=== PATIENT | female | born 1990 | race Caucasian/White ===

== ENCOUNTER 2016-12-01 05:46 | Emergency (ER) | payer OTHER ==
[2016-12-01] MEDS ORDERED: Morphine INJ* 4 MG/ML 1 ML SYRINGE IV ONE (06:16)
[2016-12-01] MEDS ORDERED: NS 0.9% 1000 ML* 1,000 ML IV ONE (06:16)
[2016-12-01] MEDS ORDERED: Ondansetron INJ* 2 MG/ML VIAL IV ONE ×2 (06:16→08:15)
[2016-12-01 06:43] LABS: Urine Bacteria 1+ (Absent); Urine Bilirubin Negative (Negative); Urine Glucose Negative (Negative); Urine Nitrite Negative (Negative)
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
[2016-12-01 07:11] LABS: Hematocrit 40 % (35-47); Hemoglobin 13.6 g/dl (12.0-16.0); Mean Corpuscular HGB Conc 34 g/dl (31-36); Mean Corpuscular Hemoglobin 30 pg (27-31); Mean Corpuscular Volume 90 fL (80-97); Mean Platelet Volume 8 um3 (7.4-10.4); Red Blood Count 4.48 10^6/ul (4.0-5.4); Red Cell Distribution Width 13 % (10.5-15); White Blood Count 7.6 10^3/ul (3.5-10.8)
[2016-12-01 07:29] LABS: ALT 13 U/L (7-52); AST 13 U/L (13-39); Albumin 4.1 g/dL (3.2-5.2); Alkaline Phosphatase 56 U/L (34-104); Anion Gap 9 mmol/L (2-11); BUN/Creatinine Ratio 8.2 (8-20); Blood Urea Nitrogen 8 mg/dL (6-24); CO2 Carbon Dioxide 22 mmol/L (22-32); Calcium 9.2 mg/dL (8.6-10.3); Chloride 105 mmol/L (101-111); EGFR African American 87.6 (>60); EGFR Non-African American 68.1 (>60); Glucose 101 mg/dL (70-100); Lipase 13 U/L (11.0-82.0); Magnesium 1.9 mg/dL (1.9-2.7); Sodium 136 mmol/L (133-145); Total Protein 7.1 g/dL (6.4-8.9)
[2016-12-01] MEDS ORDERED: Ketorolac INJ* 30 MG/ML 1 ML VIAL IV PUSH ONE (08:15)
--- NOTE | 2016-12-01 08:37 | RAD ---
Indication: Left flank pain. CT of the abdomen and pelvis was performed without oral or IV contrast administration. Coronal and sagittal reconstructed images were obtained. There is mild to moderate left hydroureter and hydronephrosis. There is a 4 mm calculus in the distal ureter just above the ureterovesicular junction. There may be an additional 1 mm calculus proximally. Other nonobstructing calculi which measure up to 1 to 2 mm are noted in the left kidney. The right kidney demonstrates no hydronephrosis although scattered nonobstructing calculi are present. The lung bases demonstrate no pleural fluid, nodules or masses. Heart is of normal size without evidence of pericardial effusion. Liver is normal in size. No focal lesions or intrahepatic ductal dilatation is noted. The pancreas demonstrates no mass or pancreatic ductal location. The spleen is normal in size. No adrenal lesions are noted. No dilated loops of bowel are noted. The colon is filled with stool. The appendix is visualized and is normal. No dilated loops of bowel are noted. No retroperitoneal or pelvic lymphadenopathy is noted. The uterus and ovaries are unremarkable. No hernias are noted. IMPRESSION: THERE IS A CALCULUS MEASURING 4 MM IN THE DISTAL LEFT URETER WITH MILD LEFT HYDRONEPHROSIS AND HYDROURETER. ADDITIONAL 1 TO 2 MM CALCULI MAY BE PRESENT. OTHER TINY NONOBSTRUCTING CALCULI ARE NOTED IN BOTH KIDNEYS.
[2016-12-01] MEDS ORDERED: Levofloxacin 750 MG IVPREMIX(* 750 MG/150 ML BAG IVPB ONE (08:54)
[2016-12-01] MEDS ORDERED: Potassium Phosphate IV* 20 MMOLE in NS 0.9% 250 ML* 250 ML IVPB ONE (08:55)
[2016-12-01 12:10] VITALS: BP 114/67
== END 2016-12-01 12:08 | disposition short-term general hospital (02) ==
LOC: ED 05:46
DX: N13.2 Hydronephrosis with renal and ureteral calculous obstruction (principal); R10.84 Generalized abdominal pain; R50.9 Fever, unspecified; R07.9 Chest pain, unspecified; R11.2 Nausea with vomiting, unspecified; R21 Rash and other nonspecific skin eruption
CPT/HCPCS: 36415; 74176; 80053; 81003; 81015; 83690; 83735; 84702; 85025; 86140; 86703; 87040; 87086; 96374; 96375; 99284; J1885; J2270; J2405

== ENCOUNTER 2017-02-19 19:42 | Emergency (ER) | payer OTHER ==
[2017-02-19] MEDS ORDERED: Ondansetron INJ* 2 MG/ML VIAL IV ONE (21:48)
[2017-02-19] MEDS ORDERED: NS 0.9% 1000 ML* 1,000 ML IV ONE (21:48)
[2017-02-19] MEDS ORDERED: Ketorolac INJ* 30 MG/ML 1 ML VIAL IV ONE (21:48)
[2017-02-19] MEDS ORDERED: diPHENhydraMINE IV* 50 MG/ML 1 ml VIAL (BENADRYL) IV ONE (21:49)
[2017-02-19 22:59] LABS: Hematocrit 42 % (35-47); Hemoglobin 13.9 g/dl (12.0-16.0); Mean Corpuscular HGB Conc 33 g/dl (31-36); Mean Corpuscular Hemoglobin 31 pg (27-31); Mean Corpuscular Volume 92 fL (80-97); Mean Platelet Volume 7 um3 (7.4-10.4); Red Blood Count 4.56 10^6/ul (4.0-5.4); Red Cell Distribution Width 13 % (10.5-15); White Blood Count 7.7 10^3/ul (3.5-10.8)
[2017-02-19 23:14] LABS: ALT 10 U/L (7-52); AST 13 U/L (13-39); Albumin 4.3 g/dL (3.2-5.2); Alkaline Phosphatase 52 U/L (34-104); Anion Gap 7 mmol/L (2-11); BUN/Creatinine Ratio 11.1 (8-20); Blood Urea Nitrogen 8 mg/dL (6-24); C Reactive Protein < 1.00 mg/L (< 5.00); CO2 Carbon Dioxide 19 mmol/L (22-32); Calcium 8.7 mg/dL (8.6-10.3); Chloride 109 mmol/L (101-111); EGFR Non-African American 97.2 (>60); Globulin 2.8 g/dL (2-4); Glucose 102 mg/dL (70-100); Potassium 3.7 mmol/L (3.5-5.0); Sodium 135 mmol/L (133-145); Total Protein 7.1 g/dL (6.4-8.9)
[2017-02-20] MEDS ORDERED: DOXYcycline CAP(*) 100 MG PO ONE (00:06)
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
[2017-02-20 01:11] VITALS: BP 113/71
== END 2017-02-20 00:35 | disposition home or self-care (01) ==
LOC: ED 19:42
DX: J32.8 Other chronic sinusitis (principal); R51 Headache; R11.10 Vomiting, unspecified; R50.9 Fever, unspecified
CPT/HCPCS: 36415; 80053; 85025; 86140; 96374; 96375; 99283; A9270-GY; J1200; J1885; J2405

== ENCOUNTER 2017-04-07 19:25 | Emergency (ER) | payer MEDICAID, OTHER ==
[2017-04-07 19:42] VITALS: BP 139/98
--- NOTE | 2017-04-07 20:11 | UC ---
Respiratory Complaint HPI - History of Current Complaint Chief Complaint: UCRespiratory Stated Complaint: SINUS COMPLAINT Time Seen by Provider: 04/07/17 20:05 Hx Obtained From: Patient Hx Last Menstrual Period: one wk ago ?: No Onset/Duration: Gradual Onset - over past 2 days has had sinus pressure, pain in her face if bends forward, sensitive to light and blowing nose Timing: Constant Severity Initially: Mild Severity Currently: Severe Aggravating Factors: Nothing - bending Associated Signs And Symptoms: Positive: Dizziness - if moves head too fast, Nasal Congestion, Sinus Discomfort - Allergies/Home Medications Allergies/Adverse Reactions: Allergies Allergy/AdvReac Type Severity Reaction Status Date / Time Amoxicillin Allergy Intermediate Hives Verified 04/07/17 19:42 Albuterol AdvReac Severe Vomiting Verified 04/07/17 19:42 Wheat Extract AdvReac Severe Vomiting Verified 04/07/17 19:42 ANTIBACTERIAL SOAPS Allergy Severe Hives Uncoded 04/07/17 19:42 CATS Allergy Severe Congestion Uncoded 04/07/17 19:42 MRI/CT "BLUE DYE" Allergy Severe ELEVATED Uncoded 04/07/17 19:42 HR AND BP, SWEATY, BREATHING PROBLEMS PMH/Surg Hx/FS Hx/Imm Hx Previously Healthy: Yes Neurological History: Migraine Psychological History: Anxiety - Surgical History Surgical History: Yes Surgery Procedure, Year, and Place: WISDOM TEETH, BREAST IMPLANTS - Family History Known Family History: Positive: None, Diabetes Negative: Cardiac Disease, Hypertension - Social History Occupation: Unemployed Lives: With Family Alcohol Use: None Substance Use Type: None Smoking Status (MU): Never Smoked Tobacco Have You Smoked in the Last Year: No Household Exposure Type: Cigarettes Review of Systems Constitutional: Negative Skin: Negative Eyes: Photophobia ENT: Sinus Congestion, Sinus Pain/Tenderness Respiratory: Negative Cardiovascular: Negative Neurovascular: Negative Musculoskeletal: Negative Neurological: Headache - points to forehead as painful area Psychological: Anxious - crying "I'm sick of having sinus infections" All Other Systems Reviewed And Are Negative: Yes Physical Exam Triage Information Reviewed: Yes Appearance: Well-Appearing, Well-Nourished Vital Signs: Initial Vital Signs Temp 97.6 F 04/07/17 19:40 Pulse 101 04/07/17 19:40 Resp 18 04/07/17 19:40 BP 139/98 04/07/17 19:40 Pulse Ox 100 04/07/17 19:40 Vital Signs Reviewed: Yes Eyes: Positive: Conjunctiva Clear. Negative: Conjunctiva Inflamed ENT: Positive: Pharynx normal, Nasal congestion, TMs normal, Other: - bilateral maxillary sinus pain Neck exam: Normal Neck: Positive: Supple, Nontender, No Lymphadenopathy Respiratory Exam: Normal Cardiovascular Exam: Normal Neurological Exam: Normal Neurological: Positive: Alert Psychological: Positive: Other: - crying Skin Exam: Normal Skin: Negative: rashes UC Diagnostic Evaluation - Laboratory O2 Sat by Pulse Oximetry: 100 Respiratory Course/Dx - Differential Dx/Diagnosis Differential Diagnosis/HQI/PQRI: Sinusitis, Other - migraine, URI Provider Diagnoses: sinusitis Discharge - Discharge Plan Condition: Stable Disposition: HOME Prescriptions: Sulfamethox/Trimethoprim DS* [Bactrim DS 800/160 TAB*] 1 tab PO BID #20 tab
[2017-04-07] MEDS: Sulfamethox/Trimethoprim DS 800/160* TAB PO ONE (20:27)
== END 2017-04-07 20:30 | disposition home or self-care (01) ==
LOC: UCEAST 19:25
DX: J32.9 Chronic sinusitis, unspecified (principal)
CPT/HCPCS: 99212; A9270-GY; G0463

== ENCOUNTER 2017-04-10 11:51 | Emergency (ER) | payer MEDICAID, OTHER ==
[2017-04-10] MEDS ORDERED: Magnesium Sulfate 2 GM IV* 2 GM/50 ML BAG IVPB ONE (16:14)
[2017-04-10] MEDS ORDERED: Metoclopramide IV* 5 MG/ML 2 ML VIAL IV SLOW PU ONE (16:14)
[2017-04-10 16:17] LABS: Hematocrit 40 % (35-47); Hemoglobin 13.7 g/dl (12.0-16.0); Mean Corpuscular HGB Conc 34 g/dl (31-36); Mean Corpuscular Hemoglobin 31 pg (27-31); Mean Corpuscular Volume 91 fL (80-97); Mean Platelet Volume 7 um3 (7.4-10.4); Red Blood Count 4.46 10^6/ul (4.0-5.4); Red Cell Distribution Width 13 % (10.5-15); White Blood Count 6.6 10^3/ul (3.5-10.8)
--- NOTE | 2017-04-10 16:28 | RAD ---
Indication: Headaches, photophobia, meningismus. CT of the brain was performed without IV contrast. Ventricular structures are midline. No midline shift is noted. The extra-axial spaces are unremarkable. There is no evidence of intracranial mass or hemorrhage. No other high or low density lesions are identified. Mastoid air cells and paranasal sinuses are unremarkable. IMPRESSION: There is no evidence of intracranial mass or hemorrhage noted.
[2017-04-10 16:29] LABS: Albumin 4.4 g/dL (3.2-5.2); Calcium 9.3 mg/dL (8.6-10.3); EGFR African American 100.4 (>60); EGFR Non-African American 78.1 (>60); Potassium 3.8 mmol/L (3.5-5.0); Total Bilirubin 0.6 mg/dL (0.2-1.0); Total Protein 7.4 g/dL (6.4-8.9)
[2017-04-10] MEDS ORDERED: Ketorolac INJ* 30 MG/ML 1 ML VIAL IV PUSH ONE (16:45)
[2017-04-10] MEDS ORDERED: PROCHLORPERAZINE INJ 5 MG/ML 2 ML VIAL IV ONE (19:50)
[2017-04-10] MEDS ORDERED: diPHENhydraMINE IV* 50 MG/ML 1 ml VIAL (BENADRYL) SLOW PUSH ONE (19:51)
[2017-04-10 21:02] LABS: CSF Glucose 54 mg/dL (40-70)
[2017-04-10 21:22] VITALS: BP 109/75
[2017-04-10 21:24] LABS: Body Fluid Appearance Clear
[2017-04-10 21:25] LABS: BF RBC Count #1 0; BF RBC Count #2 0; BF WBC Count #1 2; BF WBC Count #2 1; Body Fluid WBC 2 /mcL; RBC counts within 6%? Yes; WBC counts within 15%? Yes
[2017-04-10 21:38] LABS: Body Fluid Total Cells Counted 8
[2017-04-10] MEDS ORDERED: Metoclopramide TAB* 10 MG PO ONE (22:03)
[2017-04-10] MEDS ORDERED: Naproxen TAB* 250 MG PO ONE (22:03)
[2017-04-10] MEDS ORDERED: Levofloxacin TAB* 500 MG PO ONE (22:03)
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
== END 2017-04-10 22:05 | disposition home or self-care (01) ==
LOC: ED 11:51
DX: J32.9 Chronic sinusitis, unspecified (principal)
CPT/HCPCS: 36415; 70450; 80053; 82945; 83605; 84157; 85025; 85610; 85730; 87040; 87070; 87205; 89051; 93005; 96374; 96375; 99283; A9270-GY; J0780; J1200; J1885; J2765; J3475

== ENCOUNTER 2017-09-28 18:22 | Emergency (ER) | payer OTHER ==
[2017-09-28 19:15] VITALS: BP 125/79
--- NOTE | 2017-09-28 19:30 | UC ---
Complaint Female HPI - HPI Summary HPI Summary: 27 yo WF presents with burning with urination and urinary pressure for the past 4 days. She tells me that she has had a UTI in the past and this feels the same. She has also had a kidney stone in the past, but says this does not feel like that. She does have some mild right flank pain, but feels most of the discomfort around her bladder. Denies fever, chills, abdominal pain, n/v/d/c, vaginal pain/discharge/odor. - History Of Current Complaint Chief Complaint: UCGU Stated Complaint: UTI Time Seen by Provider: 09/28/17 19:29 Hx Obtained From: Patient Hx Last Menstrual Period: 09/07/17 Onset/Duration: Gradual Onset Timing: Constant Severity Initially: Moderate Severity Currently: Moderate Pain Intensity: 6 Pain Scale Used: 0-10 Numeric Character: Burning - Allergies/Home Medications Allergies/Adverse Reactions: Allergies Allergy/AdvReac Type Severity Reaction Status Date / Time albuterol Allergy Vomiting Verified 09/28/17 19:17 amoxicillin Allergy Hives Verified 09/28/17 19:17 ANTIBACTERIAL SOAPS Allergy Severe Hives Uncoded 09/28/17 19:17 CATS Allergy Severe Congestion Uncoded 09/28/17 19:17 MRI/CT "BLUE DYE" Allergy Severe ELEVATED Uncoded 09/28/17 19:17 HR AND BP, SWEATY, BREATHING PROBLEMS wheat extract Allergy Vomiting Uncoded 09/28/17 19:17 Home Medications: Home Medications Ibuprofen 400 mg PO Q6H PRN 09/28/17 [History Confirmed 09/28/17] SUMAtriptan TAB* [Imitrex TAB*] 100 mg PO SEE INSTRUCTIONS PRN 09/28/17 [ History Confirmed 09/28/17] Topiramate 50 mg PO DAILY 09/28/17 [History Confirmed 09/28/17] PMH/Surg Hx/FS Hx/Imm Hx Previously Healthy: Yes Neurological History: Migraine Psychological History: Anxiety - Surgical History Surgical History: Yes Surgery Procedure, Year, and Place: WISDOM TEETH, BREAST IMPLANTS - Family History Known Family History: Positive: None, Diabetes Negative: Cardiac Disease, Hypertension - Social History Occupation: Employed Full-time Lives: With Family Alcohol Use: None Substance Use Type: None Smoking Status (MU): Never Smoked Tobacco Have You Smoked in the Last Year: No Household Exposure Type: Cigarettes Review of Systems Constitutional: Negative Skin: Negative Respiratory: Negative Cardiovascular: Negative Gastrointestinal: Negative Genitourinary: Dysuria, Urgency Neurovascular: Negative Musculoskeletal: Negative Neurological: Negative Psychological: Negative All Other Systems Reviewed And Are Negative: Yes Physical Exam Triage Information Reviewed: Yes Appearance: Well-Appearing, No Pain Distress, Well-Nourished Vital Signs: Initial Vital Signs Temp 98.7 F 09/28/17 19:10 Pulse 90 09/28/17 19:10 Resp 16 09/28/17 19:10 BP 125/79 09/28/17 19:10 Pulse Ox 100 09/28/17 19:10 Vital Signs Reviewed: Yes Neck: Positive: Supple, Nontender Respiratory: Positive: Lungs clear, Normal breath sounds, No respiratory distress Cardiovascular: Positive: RRR, No Murmur, Pulses Normal Abdomen Description: Positive: Nontender, No Organomegaly, Soft. Negative: CVA Tenderness (R), CVA Tenderness (L), Distended, Guarding Bowel Sounds: Positive: Present Neurological: Positive: Alert Psychological: Positive: Age Appropriate Behavior Skin: Negative: rashes Complaint Female Dx - Course Course Of Treatment: UA with 2+ protein, 3+ blood, 1+ bili, and trace leuks. Will treat her for UTI and send urine for culture. Advised to set f/u with her PCP in 1-2 weeks or if symptoms worsen. - Differential Dx/Diagnosis Provider Diagnoses: UTI Discharge - Discharge Plan Condition: Stable Disposition: HOME Prescriptions: Sulfamethox/Trimethoprim DS* [Bactrim DS 800/160 TAB*] 1 tab PO BID #10 tab Patient Education Materials: Urinary Tract Infection in Women (DC) Referrals: Sultana Dumont MD [Primary Care Provider] - Additional Instructions: If you develop a fever, shortness of breath, chest pain, new or worsening symptoms - please call your PCP or go to the ED.
== END 2017-09-28 19:45 | disposition home or self-care (01) ==
LOC: UCEAST 18:22
DX: N39.0 Urinary tract infection, site not specified (principal); G43.909 Migraine, unspecified, not intractable, without status migrainosus; F41.9 Anxiety disorder, unspecified; Z87.440 Personal history of urinary (tract) infections; Z87.442 Personal history of urinary calculi; Z88.1 Allergy status to other antibiotic agents; Z91.041 Radiographic dye allergy status
CPT/HCPCS: 81003; 87086; 99212; G0463

== ENCOUNTER 2017-09-30 13:25 | Emergency (ER) | payer OTHER ==
[2017-09-30 14:38] LABS: ABS Basophils 0 10^3/ul (0-0.2); ABS Eosinophils 0 10^3/ul (0-0.6); ABS Lymphocytes 1.3 10^3/ul (1.0-4.8); ABS Monocytes 0.5 10^3/ul (0-0.8); ABS Neutrophils 3.8 10^3/ul (1.5-7.7); ABS Nucleated RBC 0 10^3/ul; Eosinophil % 0.4 % (0-6); Hematocrit 38 % (35-47); Hemoglobin 13.1 g/dl (12.0-16.0); Lymphocyte % 23.3 % (25-47); Mean Corpuscular HGB Conc 34 g/dl (31-36); Mean Corpuscular Hemoglobin 31 pg (27-31); Mean Corpuscular Volume 90 fL (80-97); Mean Platelet Volume 7 um3 (7.4-10.4); Nucleated Red Blood Cells % 0; Platelet Count 319 10^3/ul (150-450); Red Blood Count 4.25 10^6/ul (4.0-5.4); Red Cell Distribution Width 13 % (10.5-15); White Blood Count 5.8 10^3/ul (3.5-10.8)
[2017-09-30 14:53] LABS: EGFR Non-African American 63.1 (>60)
[2017-09-30 15:02] LABS: Urine Appearance Cloudy; Urine Blood 3+ (Negative); Urine Color Amber; Urine Ketones 2+ (Negative); Urine Protein 3+(>=500 mg/dL) (Negative); Urine Specific Gravity 1.022 (1.010-1.030); Urine Urobilinogen Negative (Negative)
--- NOTE | 2017-09-30 17:45 | RAD ---
Indication: Left flank pain. CT of the abdomen and pelvis was performed without oral or IV contrast administration. Coronal and sagittal reconstructed images were obtained. Lung bases demonstrate no pleural fluid, nodules or masses. Heart is of normal size without evidence of pericardial effusion. Liver is normal in size. No focal lesions or intrahepatic ductal dilatation. Spleen is normal in size. Pancreas demonstrates no mass or pancreatic ductal dictation. The gallbladder demonstrates no evidence of cholelithiasis or biliary duct dictation. The common duct is not dilated. No adrenal lesions are noted. The kidneys demonstrates calcifications in both kidneys which are nonobstructive. There is mild left hydroureter and hydronephrosis noted. There is a calculi at the left ureterovesicular junction measuring 4 mm. Urinary bladder is otherwise unremarkable. Uterus and ovaries are otherwise unremarkable. No hernias are identified. Aorta and inferior vena cava are otherwise unremarkable. Small bowel demonstrates no evidence of abnormal dilatation. The colon is filled with stool. The bony structures are grossly unremarkable. IMPRESSION: Calculi at the left ureterovesicular junction measuring 4 mm. Mild left hydronephrosis and hydroureter is noted..
[2017-09-30] MEDS ORDERED: HYDROcodone/ACETAMIN 5-325 MG* 1 TAB PO ONE (18:01)
[2017-09-30 19:29] VITALS: BP 118/99
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
== END 2017-09-30 19:25 | disposition home or self-care (01) ==
LOC: ED 13:25
DX: N13.2 Hydronephrosis with renal and ureteral calculous obstruction (principal); Z88.3 Allergy status to other anti-infective agents; Z88.2 Allergy status to sulfonamides; Z88.8 Allergy status to other drugs, medicaments and biological substances
CPT/HCPCS: 36415; 74176; 80053; 81003; 81015; 83605; 83690; 84702; 85025; 86140; 87086; 99284

== ENCOUNTER 2017-12-28 16:07 | Emergency (ER) | payer OTHER ==
[2017-12-28] MEDS ORDERED: Ondansetron ODT TAB* 4 MG SL ONE (17:54)
--- NOTE | 2017-12-28 18:11 | UC ---
Nausea/Vomiting/Diarrhea HPI - HPI Summary HPI Summary: Patient is 27-year-old female presenting to the with chief complaint of feeling tired and weak, nausea and vomiting with achiness all over times one week. She was recently placed on potassium citrate for kidney stones [address] Rascon. She started having symptoms 2 weeks after being placed on medication and continues to worsen. Labs obtained 1 week ago which shows a normal potassium lab. Unknown chance of or UTI. Denies any urinary symptoms. Denies any abdominal pain. Endorses a small amount of back pain, but this is low back pain and bilateral and she states this is usually at her baseline. She denies any shortness of breath or chest pain. Denies any fevers , sweats, chills. - History of Current Complaint Chief Complaint: UCGeneralIllness Stated Complaint: VOMITING Time Seen by Provider: 12/28/17 17:44 Hx Obtained From: Patient Hx Last Menstrual Period: ?: No Onset/Duration: Sudden Onset Timing: Constant Severity Initially: Mild Severity Currently: Mild Pain Intensity: 8 Pain Scale Used: 0-10 Numeric Aggravating Factor(s): Nothing Alleviating Factor(s): Nothing Vomiting Frequency: Daily Nausea/Vomiting Duration: 24-36 hours Diarrhea Presence: No - Risk Factors Influenza Risk Factors: Negative Surgical Obstruction Risk Factor(s): Negative - Allergies/Home Medications Allergies/Adverse Reactions: Allergies Allergy/AdvReac Type Severity Reaction Status Date / Time Sulfa (Sulfonamide Allergy Intermediate Itching Verified 12/28/17 17:20 Antibiotics) albuterol Allergy Vomiting Verified 12/28/17 17:20 amoxicillin Allergy Hives Verified 12/28/17 17:20 ANTIBACTERIAL SOAPS Allergy Severe Hives Uncoded 12/28/17 17:20 CATS Allergy Severe Congestion Uncoded 12/28/17 17:20 MRI/CT "BLUE DYE" Allergy Severe ELEVATED Uncoded 12/28/17 17:20 HR AND BP, SWEATY, BREATHING PROBLEMS wheat extract Allergy Vomiting Uncoded 12/28/17 17:20 Home Medications: Home Medications Gabapentin 300 mg PO 12/28/17 [History] Potassium Citrate [Potassium Citrate ER] 12/28/17 [History] PMH/Surg Hx/FS Hx/Imm Hx Previously Healthy: Yes - Surgical History Surgical History: Yes Surgery Procedure, Year, and Place: WISDOM TEETH, BREAST IMPLANTS - Family History Known Family History: Positive: None, Diabetes Negative: Cardiac Disease, Hypertension - Social History Occupation: Employed Full-time Lives: With Family Alcohol Use: None Substance Use Type: None Smoking Status (MU): Never Smoked Tobacco Have You Smoked in the Last Year: No Household Exposure Type: Cigarettes Review of Systems Constitutional: Negative Skin: Negative Respiratory: Negative Cardiovascular: Negative Gastrointestinal: Vomiting, Nausea Motor: Weakness Neurovascular: Negative Neurological: Negative Is Patient Immunocompromised?: No All Other Systems Reviewed And Are Negative: Yes Physical Exam Triage Information Reviewed: Yes Appearance: Well-Appearing, No Pain Distress, Well-Nourished Vital Signs: Initial Vital Signs Temp 98.1 F 12/28/17 17:11 Pulse 90 12/28/17 17:11 Resp 16 12/28/17 17:11 BP 114/77 12/28/17 17:11 Pulse Ox 100 12/28/17 17:11 Vital Signs Reviewed: Yes Eye Exam: Normal Eyes: Positive: Conjunctiva Clear Neck exam: Normal Neck: Positive: Supple, No Lymphadenopathy Respiratory Exam: Normal Respiratory: Positive: Chest non-tender, Lungs clear Cardiovascular Exam: Normal Cardiovascular: Positive: RRR Musculoskeletal Exam: Normal Musculoskeletal: Positive: Strength Intact Neurological Exam: Normal Neurological: Positive: Alert Psychological: Positive: Normal Response To Family Skin Exam: Normal Naus/Vom/Diarrhea Course/Dx - Course Course Of Treatment: Patient is evaluated for weakness. Have discussed with the patient that I am unable to obtain labs for her. Labs were obtained exactly 1 week ago which show normal lab values for her chemistry. UA and and obtained. I've given her Zofran with relief. Due to her extreme weakness, there is a possibility she may have mono. We are unable to test this on this date as a send out would not occur until 3 days from now. Lab is unable to do this for us. I discussed this with patient and she states she will follow back up with her PCP to obtain a lab test if needed. She will also follow-up with Dr. Rascon to discuss the continuation or cessation of potassium chloride tablets. Vital signs are stable and she appears well. Labs were drawn one week ago and potassium and sodium were WNL. She denies any cardiac symptoms. - Differential Dx/Diagnosis Provider Diagnoses: Weakness Condition At Discharge: Stable Discharge - Sign-Out/Discharge Documenting (check all that apply): Discharge/Admit/Transfer - Discharge Plan Condition: Stable Disposition: HOME Prescriptions: Ondansetron ODT TAB* [Zofran 4 MG Odt TAB*] 4 mg PO Q6H PRN #12 tab.odt MDD 4 PRN Reason: Nausea Patient Education Materials: Mononucleosis (ED), Weakness (ED) Forms: *Work Release Referrals: Sultana Dumont MD [Primary Care Provider] - Additional Instructions: I have given you information on mono, however we are unsure without a blood test if this is what is causing your symptoms and we are unable to test for that today. Please follow up with your PCP for worsening symptoms Zofran is given as prescription for any nausea/vomiting Please call Dr. Rascon's office on Sunday - Bill Disposition and Condition Condition: STABLE Disposition: HOME
[2017-12-28 19:43] VITALS: BP 131/73
== END 2017-12-28 19:00 | disposition home or self-care (01) ==
LOC: UCEAST 16:07
DX: R53.1 Weakness (principal); R11.2 Nausea with vomiting, unspecified; M54.5 Low back pain; Z87.442 Personal history of urinary calculi; Z88.2 Allergy status to sulfonamides; Z88.8 Allergy status to other drugs, medicaments and biological substances; Z88.0 Allergy status to penicillin; Z88.3 Allergy status to other anti-infective agents; Z91.041 Radiographic dye allergy status; Z91.018 Allergy to other foods
CPT/HCPCS: 36415; 81003; 84702; 86703; 99212; A9270-GY; G0463

== ENCOUNTER 2017-12-31 17:18 | Emergency (ER) | payer OTHER ==
[2017-12-31] MEDS ORDERED: NS 0.9% 1000 ML* 1,000 ML IV ONE (17:37)
[2017-12-31 17:53] LABS: ABS Basophils 0 10^3/ul (0-0.2); ABS Eosinophils 0 10^3/ul (0-0.6); ABS Lymphocytes 1.9 10^3/ul (1.0-4.8); ABS Monocytes 0.6 10^3/ul (0-0.8); ABS Nucleated RBC 0 10^3/ul; Eosinophil % 0.7 % (0-6); Hematocrit 37 % (35-47); Hemoglobin 12.6 g/dl (12.0-16.0); Lymphocyte % 29.4 % (25-47); Mean Corpuscular HGB Conc 34 g/dl (31-36); Mean Corpuscular Hemoglobin 31 pg (27-31); Mean Corpuscular Volume 91 fL (80-97); Mean Platelet Volume 7.2 um3 (7.4-10.4); Nucleated Red Blood Cells % 0; Platelet Count 292 10^3/ul (150-450); Red Blood Count 4.05 10^6/ul (4.0-5.4); Red Cell Distribution Width 12 % (10.5-15); White Blood Count 6.6 10^3/ul (3.5-10.8)
[2017-12-31] MEDS ORDERED: Potassium Chlor TAB* 20 MEQ TAB.ER PO ONE (18:59)
[2017-12-31 19:21] VITALS: BP 128/78
[2017-12-31 19:30] LABS: Urine Appearance Clear; Urine Blood 3+ (Negative); Urine Color Yellow; Urine Ketones Negative (Negative); Urine Protein Negative (Negative); Urine Specific Gravity 1.016 (1.010-1.030); Urine Urobilinogen Negative (Negative)
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
== END 2017-12-31 20:22 | disposition home or self-care (01) ==
LOC: ED 17:18
DX: R53.1 Weakness (principal)
CPT/HCPCS: 36415; 80053; 81003; 81015; 84702; 85025; 86140; 86308; 86663; 86850; 86900; 86901; 87086; 87651; 96360; 99283; A9270-GY

== ENCOUNTER 2018-03-11 10:52 | Emergency (ER) | payer SELFPAY ==
[2018-03-11 11:21] VITALS: BP 116/81
--- NOTE | 2018-03-11 11:26 | UC ---
Complaint Female HPI - HPI Summary HPI Summary: 27 yo female presents with vaginal discharge and itching for the last 3-4 days. Also has some urinary frequency and burning. She tells me that she thinks she has a yeast infection as she has had them in the past and this feels similar. She is sexually active, but denies concern for STDs as she was checked at her last annual appt within the last few months. She also mentions that she has switched OBCs in the last 2 weeks and is having some vaginal bleeding today, which she assumes is her period. Denies fever, chills, abdominal pain, n/v/d/c, hematuria, flank pain, or vaginal pain. - History Of Current Complaint Chief Complaint: UCGU Stated Complaint: PERSONAL Time Seen by Provider: 03/11/18 11:26 Hx Obtained From: Patient Hx Last Menstrual Period: just started Onset/Duration: Gradual Onset Severity Initially: Moderate Severity Currently: Moderate Pain Intensity: 5 Pain Scale Used: 0-10 Numeric - Allergies/Home Medications Allergies/Adverse Reactions: Allergies Allergy/AdvReac Type Severity Reaction Status Date / Time Sulfa (Sulfonamide Allergy Intermediate Itching Verified 03/11/18 11:15 Antibiotics) albuterol Allergy Vomiting Verified 03/11/18 11:15 amoxicillin Allergy Hives Verified 03/11/18 11:15 ANTIBACTERIAL SOAPS Allergy Severe Hives Uncoded 03/11/18 11:15 CATS Allergy Severe Congestion Uncoded 03/11/18 11:15 MRI/CT "BLUE DYE" Allergy Severe ELEVATED Uncoded 03/11/18 11:15 HR AND BP, SWEATY, BREATHING PROBLEMS wheat extract Allergy Vomiting Uncoded 03/11/18 11:15 Home Medications: Home Medications Acetaminophen [Tylenol Extra Strength] 500 mg PRN 03/11/18 [History] Levonorgestrel-Ethin Estradiol [Lutera-28 Tablet] 1 tab 03/11/18 [History] PMH/Surg Hx/FS Hx/Imm Hx - Additional Past Medical History Additional PMH: Anxiety Migraines - Surgical History Surgical History: Yes Surgery Procedure, Year, and Place: WISDOM TEETH, BREAST IMPLANTS - Family History Known Family History: Positive: None, Diabetes Negative: Cardiac Disease, Hypertension - Social History Alcohol Use: None Substance Use Type: None Smoking Status (MU): Never Smoked Tobacco Have You Smoked in the Last Year: No Household Exposure Type: Cigarettes Review of Systems Constitutional: Negative Skin: Negative Respiratory: Negative Cardiovascular: Negative Gastrointestinal: Negative Genitourinary: Dysuria, Vaginal/Penile Itching, Vaginal/Penile Discharge Neurovascular: Negative Neurological: Negative Psychological: Negative All Other Systems Reviewed And Are Negative: Yes Physical Exam - Summary Physical Exam Summary: GENERAL: NAD. WDWN. No pain distress. SKIN: No rashes, sores, lesions, or open wounds. NECK: Supple. Nontender. No lymphadenopathy. CHEST: CTAB. No r/r/w. No accessory muscle use. Breathing comfortably and in no distress. CV: RRR. Without m/r/g. Pulses intact. Brisk cap refill. ABDOMEN: Soft. NTTP. No distention or guarding. No organomegaly. No CVA tenderness. Bowel sounds present NEURO: Alert. CN II-XII grossly intact. PSYCH: Age appropriate behavior. Triage Information Reviewed: Yes Vital Signs: Initial Vital Signs Temp 99.4 F 03/11/18 11:17 Pulse 90 03/11/18 11:17 Resp 16 03/11/18 11:17 BP 116/81 03/11/18 11:17 Pulse Ox 100 03/11/18 11:17 Laboratory Tests 03/11/18 03/11/18 12:00 12:15 POC Urine Color Yellow POC Urine Clarity Clear POC Urine pH 6.5 POC Ur Specif [place] 1.025 POC Urine Protein Negative POC Ur Glucose (UA) Negative POC Urine Ketones Negative POC Urine Blood 3+ A POC Urine Nitrite Negative POC Urine Bilirubin Negative POC Urine Urobilinogen 1.0 POC U Leukocyte Esteras Trace A POC Ur Test Negative Vital Signs Reviewed: Yes Pelvic Exam: Positive: External Exam Normal, No Cerv. Motion Tender, No Masses, Active Bleeding, Discharge - Thick white/yellow, Other - Annamiek RN assisted with exam. Negative: Lesions, Mass, Tender w/ Cervical Motion, Ulcers Complaint Female Dx - Course Course Of Treatment: UA with trace leuks. Preg negative. Culture obtain for BV and yeast. Pt declined STD testing today. Given her symptoms - will treat her for UTI and yeast infection. - Differential Dx/Diagnosis Provider Diagnoses: UTI. Yeast infection vaginal Discharge - Sign-Out/Discharge Documenting (check all that apply): Patient Departure - Discharge Plan Condition: Stable Disposition: HOME Prescriptions: Fluconazole 150 MG (NF) [Diflucan 150 mg (NF)] 150 mg PO ONCE #2 tab Nitrofurantoin Monohyd/M-Cryst [Macrobid 100 mg Capsule] 100 mg PO BID #10 cap Patient Education Materials: Yeast Infection (ED) Referrals: Sultana Dumont MD [Primary Care Provider] - Additional Instructions: If you develop a fever, shortness of breath, chest pain, new or worsening symptoms - please call your PCP or go to the ED. - Billing Disposition and Condition Condition: STABLE Disposition: Home
== END 2018-03-11 12:25 | disposition home or self-care (01) ==
LOC: UCEAST 10:52
DX: N39.0 Urinary tract infection, site not specified (principal); B37.3 Candidiasis of vulva and vagina; Z32.02 Encounter for pregnancy test, result negative; Z88.0 Allergy status to penicillin; Z88.2 Allergy status to sulfonamides; Z88.8 Allergy status to other drugs, medicaments and biological substances
CPT/HCPCS: 81003; 84702; 87086; 87480; 87510; 99212; G0463

== ENCOUNTER 2018-03-12 16:12 | Emergency (ER) | payer OTHER ==
[2018-03-12 16:29] VITALS: BP 142/89
--- NOTE | 2018-03-12 16:43 | UC ---
Complaint Female HPI - HPI Summary HPI Summary: 27 yo female presents with increased vaginal discharge and vomiting since this morning. I saw her yesterday for vaginal discharge and itching and treated her for a yeast infection and ?UTI. Culture confirmed yeast infection today, but urine showed no growth. Today she tells me that she has had brown vaginal discharge with increased itching and started vomiting after taking two doses of macrobid. She has not wanted to eat or drink much today due to vomiting/nausea. She denies fever, chills, SOB, chest pain, abdominal pain, diarrhea. Her LMP was yesterday - History Of Current Complaint Chief Complaint: UCGU Stated Complaint: VAG DISCHARGE,VOMITING Time Seen by Provider: 03/12/18 16:43 Hx Obtained From: Patient Hx Last Menstrual Period: 03/06/18 Onset/Duration: Sudden Onset Severity Initially: Severe Severity Currently: Severe Pain Intensity: 10 Pain Scale Used: 0-10 Numeric - Allergies/Home Medications Allergies/Adverse Reactions: Allergies Allergy/AdvReac Type Severity Reaction Status Date / Time Sulfa (Sulfonamide Allergy Intermediate Itching Verified 03/11/18 11:15 Antibiotics) albuterol Allergy Vomiting Verified 03/11/18 11:15 amoxicillin Allergy Hives Verified 03/11/18 11:15 ANTIBACTERIAL SOAPS Allergy Severe Hives Uncoded 03/11/18 11:15 CATS Allergy Severe Congestion Uncoded 03/11/18 11:15 MRI/CT "BLUE DYE" Allergy Severe ELEVATED Uncoded 03/11/18 11:15 HR AND BP, SWEATY, BREATHING PROBLEMS wheat extract Allergy Vomiting Uncoded 03/11/18 11:15 PMH/Surg Hx/FS Hx/Imm Hx - Additional Past Medical History Additional PMH: Migraines Psychological History: Anxiety, Depression - Surgical History Surgical History: Yes Surgery Procedure, Year, and Place: WISDOM TEETH, BREAST IMPLANTS - Family History Known Family History: Positive: None, Diabetes Negative: Cardiac Disease, Hypertension - Social History Alcohol Use: None Substance Use Type: None Smoking Status (MU): Never Smoked Tobacco Have You Smoked in the Last Year: No Household Exposure Type: Cigarettes Review of Systems Constitutional: Negative Skin: Negative Respiratory: Negative Cardiovascular: Negative Gastrointestinal: Vomiting, Nausea Genitourinary: Vaginal/Penile Discharge Motor: Negative Neurovascular: Negative Neurological: Negative Psychological: Negative All Other Systems Reviewed And Are Negative: Yes Physical Exam - Summary Physical Exam Summary: GENERAL: NAD. WDWN. No pain distress. Lying comfortably on the exam table SKIN: No rashes, sores, lesions, or open wounds. NECK: Supple. Nontender. No lymphadenopathy. CHEST: CTAB. No r/r/w. No accessory muscle use. Breathing comfortably and in no distress. CV: RRR. Without m/r/g. Pulses intact. Brisk cap refill. ABDOMEN: Mild TTP over lower abdomen. No distention or guarding. No organomegaly. No CVA tenderness. Bowel sounds present NEURO: Alert. CN II-XII grossly intact. PSYCH: Age appropriate behavior. Triage Information Reviewed: Yes Vital Signs: Initial Vital Signs Temp 98.5 F 03/12/18 16:23 Pulse 100 03/12/18 16:23 Resp 16 03/12/18 16:23 BP 142/89 03/12/18 16:23 Pulse Ox 100 03/12/18 16:23 Vital Signs Reviewed: Yes Pelvic Exam: Positive: External Exam Normal, No Cerv. Motion Tender, No Masses, Blood - clotted, Discharge - Mild thick yellow/white - less than exam yesterday , Other - Eunice SWANN assisted with exam. Negative: Lesions, Mass, Tender w/ Cervical Motion, Tender Adnexa, Tender Uterus, Ulcers Complaint Female Dx - Course Course Of Treatment: Culture obtained for GC/C. Zofran given in clinic with good relief of nausea. Will treat her for mild PID - Ceftriaxone 250mg given in clinic and rx for Doxycycline. She is asking for a topical cream for her yeast infection/itch, therefore will rx monistat. - Differential Dx/Diagnosis Provider Diagnoses: Yeast infection. Vaginal discharge. Lower abdominal pain Discharge - Sign-Out/Discharge Documenting (check all that apply): Patient Departure - Discharge Plan Condition: Stable Disposition: HOME Prescriptions: DOXYcycline CAP(*) [DOXYcycline 100MG CAP(*)] 100 mg PO BID #14 cap Miconazole VAG.SUPP* [Monistat7*] 100 mg VAGINAL BEDTIME #7 vag.supp Patient Education Materials: Pelvic Inflammatory Disease (DC), Yeast Infection (ED) Referrals: Sultana Dumont MD [Primary Care Provider] - Additional Instructions: If you develop a fever, shortness of breath, chest pain, new or worsening symptoms - please call your PCP or go to the ED. Your blood pressure was high at todays visit. Please see your primary provider within 4 weeks for recheck and re-evaluation. 1) Please stop taking the MACROBID and start taking the DOXYCYCLINE - Billing Disposition and Condition Condition: STABLE Disposition: Home
[2018-03-12] MEDS ORDERED: Ondansetron ODT TAB* 4 MG PO ONE (17:03)
[2018-03-12] MEDS ORDERED: cefTRIAXone VIAL(*) 250 MG VIAL IM ONE (17:03)
[2018-03-12] MEDS ORDERED: Lidocaine 1% MPF* 2 ML VIAL INJ ONE (17:04)
[2018-03-12] MEDS ORDERED: Lidocaine 1%* 5 ML VIAL INJ ONE (17:15)
== END 2018-03-12 17:37 | disposition home or self-care (01) ==
LOC: UCEAST 16:12
DX: B37.3 Candidiasis of vulva and vagina (principal); N89.8 Other specified noninflammatory disorders of vagina; R10.30 Lower abdominal pain, unspecified; Z88.0 Allergy status to penicillin; Z88.2 Allergy status to sulfonamides; Z88.8 Allergy status to other drugs, medicaments and biological substances; Z91.041 Radiographic dye allergy status
CPT/HCPCS: 87491; 87591; 99213; A9270-GY; G0463; J0696

== ENCOUNTER 2018-03-15 10:16 | Emergency (ER) | payer SELFPAY ==
[2018-03-15] MEDS ORDERED: NS 0.9% 1000 ML* 1,000 ML IV ONE (11:46)
[2018-03-15] MEDS ORDERED: Morphine INJ* 2 MG/ML 1 ML SYRINGE (TWO MG - NEW SYRINGE VERSION) IV ONE (11:46)
[2018-03-15] MEDS ORDERED: Ondansetron INJ* 2 MG/ML VIAL IV ONE (11:46)
[2018-03-15 12:06] LABS: ABS Basophils 0 10^3/ul (0-0.2); ABS Eosinophils 0 10^3/ul (0-0.6); ABS Lymphocytes 1.3 10^3/ul (1.0-4.8); ABS Monocytes 0.3 10^3/ul (0-0.8); ABS Neutrophils 3.9 10^3/ul (1.5-7.7); ABS Nucleated RBC 0 10^3/ul; Eosinophil % 0.3 % (0-6); Hematocrit 38 % (35-47); Hemoglobin 12.7 g/dl (12.0-16.0); Lymphocyte % 23.8 % (25-47); Mean Corpuscular HGB Conc 34 g/dl (31-36); Mean Corpuscular Hemoglobin 31 pg (27-31); Mean Corpuscular Volume 91 fL (80-97); Mean Platelet Volume 7.1 um3 (7.4-10.4); Nucleated Red Blood Cells % 0; Platelet Count 314 10^3/ul (150-450); Red Blood Count 4.13 10^6/ul (4.00-5.40); Red Cell Distribution Width 13 % (10.5-15); White Blood Count 5.6 10^3/ul (3.5-10.8)
[2018-03-15 12:19] LABS: INR 0.92 (0.77-1.02)
[2018-03-15 12:31] LABS: EGFR Non-African American 94.9 (>60)
--- NOTE | 2018-03-15 12:36 | RAD ---
INDICATION: Pelvic pain COMPARISON: None TECHNIQUE: Longitudinal and transverse transvaginal scans of the pelvis were obtained. FINDINGS: Uterus: The uterus is normal in size. There are no focal masses. The uterus measures 7.5 x 3.7 x 4.3 cm. Endometrial thickness: The endometrial thickness is measured at 0.3 cm. . Free fluid: There is a small amount of fluid in the cul-de-sac . Ovaries: The ovaries are normal in size. The right ovary measures 3.9 x 2.3 x 2.9 cm. The left ovary measures 2.9 x 1.9 x 2.9 cm. . Doppler interrogation demonstrates flow to each ovary. Other: None IMPRESSION: NORMAL EXAMINATION. SMALL AMOUNT OF FREE FLUID WHICH IS LIKELY PHYSIOLOGIC FLUID.
--- NOTE | 2018-03-15 13:19 | RAD ---
INDICATION: Lower pelvic pain. Left flank pain in a 19-year-old. History of nephrolithiasis. Concurrent pelvic sonogram shows small amount of free fluid. COMPARISON: Pelvic sonogram same date; CT abdomen and pelvis September 30, 2017 TECHNIQUE: Noncontrast axial source images were acquired from the level hemidiaphragms to the symphysis pubis as part of CT imaging for renal stone. Lung bases: The lung bases are clear. There is bilateral breast augmentation Liver: The liver is normal in size. Noncontrast imaging shows no evidence of a hepatic mass or ductal dilatation. Gallbladder: There are no calcified gallstones. There is no evidence of wall thickening or pericholecystic fluid.. Spleen: The spleen is normal in size. The noncontrast CT appearance is normal. Pancreas: Noncontrast imaging shows no pancreatic mass or ductal dilitation. Adrenal glands: No masses are identified. Kidneys/Bladder: There is a 1 or 2 approximately 1 mm calculi in the midpole region of the right kidney and there is a 2 mm calculus in the upper pole on the left. There is no CT evidence of hydronephrosis. Noncontrast imaging shows no evidence of a renal mass. The bladder is unremarkable.. Adenopathy: There is no evidence of intraperitoneal or retroperitoneal adenopathy. Evaluation is limited without oral contrast. Fluid collections: There are no free or localized fluid collections. Vessels: The aorta and iliac vessels are normal in caliber. There are no significant atherosclerotic changes. The IVC appears normal Pelvic organs: The uterus and adnexa appear normal GI tract: Evaluation of the bowel is limited without oral contrast. The stomach, small bowel, and lower GI tract appear grossly normal. There are no obstructive findings. The appendix is visualized and appears normal. Soft tissues: No soft tissue abnormalities of the extraperitoneal abdomen or pelvis are identified. Osseous structures: There are no acute osseous findings. IMPRESSION: TINY, BILATERAL NONOBSTRUCTIVE RENAL CALCULI, OTHERWISE NEGATIVE
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
[2018-03-15] MEDS ORDERED: Ketorolac INJ* 30 MG/ML 1 ML VIAL IV PUSH ONE (14:12)
[2018-03-15 14:26] LABS: Urine Appearance Clear; Urine Blood 2+ (Negative); Urine Color Straw; Urine Ketones Negative (Negative); Urine Protein Negative (Negative); Urine Red Blood Cell 1+(3-5/hpf) (Absent); Urine Specific Gravity 1.003 (1.010-1.030); Urine Urobilinogen Negative (Negative); Urine White Blood Cell Trace(0-5/hpf) (Absent)
[2018-03-15 15:23] VITALS: BP 124/84
== END 2018-03-15 15:15 | disposition home or self-care (01) ==
LOC: ED 10:16
DX: B37.3 Candidiasis of vulva and vagina (principal); N94.6 Dysmenorrhea, unspecified; N20.0 Calculus of kidney; Z87.442 Personal history of urinary calculi; Z87.42 Personal history of other diseases of the female genital tract; Z88.5 Allergy status to narcotic agent; Z88.3 Allergy status to other anti-infective agents; Z88.8 Allergy status to other drugs, medicaments and biological substances
CPT/HCPCS: 36415; 74176; 76830; 80053; 81003; 81015; 83605; 83690; 83735; 84702; 85025; 85610; 85730; 86140; 87086; 96361; 96374; 96375; 99283; J1885; J2270; J2405

== ENCOUNTER 2018-03-28 11:44 | Emergency (ER) | payer OTHER ==
[2018-03-28 12:28] VITALS: BP 112/71
--- NOTE | 2018-03-28 13:31 | UC ---
Lower Extremity/Ankle HPI - HPI Summary HPI Summary: 27 y/o female presents to the urgent care c/o Rt posterior aspect of lower leg w / a purple rash she noticed last night. this morning she noticed rash is spreading more and associated w/ a tingling sensation at times. Pt denies pain, recent injury, wearing tight clothings, fever, change in medication, recent viral illness, urinary symptoms, SOB, chest pain, abdominal pain, N/V/D, neck pain, dizziness, smoking or recent travel. Pt stopped taking OCP about 3 weeks ago since she wants to be . She did a test 1 week ago, it was negative. LMP:03/01/2018. She has FMHX of DVT - History of Current Complaint Chief Complaint: UCSkin Stated Complaint: BRUISING ON LEG Time Seen by Provider: 03/28/18 13:29 Hx Obtained From: Patient Hx Last Menstrual Period: 03/01/2018 ?: No Onset/Duration: Gradual Onset, Lasting Days - 1 day, Still Present Severity Initially: Mild Severity Currently: Mild Pain Intensity: 0 Pain Scale Used: 0-10 Numeric Aggravating Factor(s): Nothing Alleviating Factor(s): Rest Able to Bear Weight: Yes - Risk Factors Gout Risk Factors: Negative DVT Risk Factors: Negative Septic Arthritis Risk Factor: Negative - Allergies/Home Medications Allergies/Adverse Reactions: Allergies Allergy/AdvReac Type Severity Reaction Status Date / Time Sulfa (Sulfonamide Allergy Intermediate Itching Verified 03/28/18 12:19 Antibiotics) albuterol Allergy Vomiting Verified 03/28/18 12:19 amoxicillin Allergy Hives Verified 03/28/18 12:19 ANTIBACTERIAL SOAPS Allergy Severe Hives Uncoded 03/28/18 12:19 CATS Allergy Severe Congestion Uncoded 03/28/18 12:19 MRI/CT "BLUE DYE" Allergy Severe ELEVATED Uncoded 03/28/18 12:19 HR AND BP, SWEATY, BREATHING PROBLEMS wheat extract Allergy Vomiting Uncoded 03/28/18 12:19 PMH/Surg Hx/FS Hx/Imm Hx Previously Healthy: Yes GI/ History: Kidney Stones Neurological History: Migraine Other History Of: Negative For: Anticoagulant Therapy - Surgical History Surgical History: Yes Surgery Procedure, Year, and Place: WISDOM TEETH,. BREAST IMPLANTS - Family History Known Family History: Positive: Diabetes Negative: Cardiac Disease, Hypertension - Social History Occupation: Employed Full-time Lives: With Family Alcohol Use: None Substance Use Type: None Smoking Status (MU): Never Smoked Tobacco Have You Smoked in the Last Year: No Household Exposure Type: Cigarettes Review of Systems Constitutional: Negative Skin: Rash - RT psoterior purple rash Eyes: Negative ENT: Negative Respiratory: Negative Cardiovascular: Negative Gastrointestinal: Negative Genitourinary: Negative Motor: Negative Neurovascular: Negative Musculoskeletal: Negative Neurological: Negative Psychological: Negative Is Patient Immunocompromised?: No All Other Systems Reviewed And Are Negative: Yes Physical Exam - Summary Physical Exam Summary: Vital Signs Reviewed: Yes General: well developed, well nourished female sitting in the examining table w/ o any apparent distress. Eyes: Positive: Conjunctiva Clear - PERRLA, EOMI ENT: Positive: Normal ENT inspection, Hearing grossly normal, Pharynx normal, TMs normal Neck: Positive: Supple, Nontender, No Lymphadenopathy Respiratory: Positive: Chest nontender, Lungs clear, Normal breath sounds Cardiovascular: Positive: RRR, No Murmur, Pulses Normal Abdomen Description: Positive: Nontender, No Organomegaly, Soft. Negative: CVA Tenderness (R), CVA Tenderness (L) Bowel Sounds: Positive: Present Musculoskeletal: Positive: Strength Intact, ROM Intact, No Edema Neurological Exam: Normal Psychological Exam: Normal Skin: Positive: rashes - RT posterior lower leg w/ scattered non palpable petechia, non blanching and non tender on palpation, Cheryl's sign negative RT, no warm to touch, no swelling observer, capillary refill brisk, sensation intact, pulses WNL, No varicose veins noted, FROM of RT lower leg. Triage Information Reviewed: Yes Vital Signs: Initial Vital Signs Temp 98.1 F 03/28/18 12:22 Pulse 93 03/28/18 12:22 Resp 16 03/28/18 12:22 BP 112/71 03/28/18 12:22 Pulse Ox 100 03/28/18 12:22 Lower Extremity Course/Dx - Course Course Of Treatment: 27 y/o female presents to the urgent care c/o Rt posterior aspect of lower leg w/ a purple rash she noticed last night. this morning she noticed rash is spreading more and associated w/ a tingling sensation at times. Pt denies pain, recent injury, wearing tight clothings, fever, change in medication, recent viral illness,joint pains, urinary symptoms, SOB, chest pain , abdominal pain, N/V/D, neck pain, dizziness, smoking or recent travel. Pt stopped taking OCP about 3 weeks ago since she wants to be . She did a test 1 week ago, it was negative. LMP:03/01/2018. She has FMHX of DVT. Pt states she was Tx for Candidiasis at the ER about 1 week ago.Hx obtained.Pt w / RT posterior lower leg w/ scattered non palpable petechia, non blanching and non tender on palpation, Cheryl's sign negative on examination. Pt is hemodynamically stable, vitals signs WNL, UA: trace of blood and trace of leukoesteraces. test negative. Pt denies Vaginal discharge. Pt probably w/ a vasculitis. Pt's symptoms discussed w/ DR York he evalauted Pt and he also thinks it can be a vasculitis. He recommended a CBC, CMP and ESR since PT UA positive for blood. Blood work ordered. Pt educated on vasculitis. Pt strongly advised if rash increases she should go immediately to the ER for furthe management. Otherwise f/u w/ her PCP for further treatment. Pt will be notified of blood work. D/C instructions explained. Pt understood and agreed w/ plan of care. - Differential Dx/Diagnosis Differential Diagnosis/HQI/PQRI: Cellulitis, Infection, Phlebitis, Other - purpura, vaculitis Provider Diagnoses: 1- Right lower leg petechial rash Discharge - Sign-Out/Discharge Documenting (check all that apply): Patient Departure - D/C home All imaging exams completed and their final reports reviewed: No Studies - Discharge Plan Condition: Stable Disposition: HOME Patient Education Materials: Purpura (ED) Referrals: Sultana Dumont MD [Primary Care Provider] - 2 Days Additional Instructions: 1- Your leg is presenting w/ petechia in your posterior RT lower leg. It can be a vasculitis 2- Please increase fluid intake, rest, elevate your legs. 3- Blood work has been sent to lab, you will be notified of any abnormality. 4- Urine was +positive for trace of blood and Leukoesteraces. Urine was sent for culture. You will be notified of results for further management. 5--Please take Tylenol PO q6-8hrs prn if you develop pain. 6-If bruising or pethechia spreads in all your body and you develop fever please go immediately to the Er for further managmeent. 7- test is negative - Billing Disposition and Condition Condition: STABLE Disposition: Home
[2018-03-28 18:42] LABS: ABS Basophils 0 10^3/ul (0-0.2); ABS Eosinophils 0 10^3/ul (0-0.6); ABS Lymphocytes 1.4 10^3/ul (1.0-4.8); ABS Monocytes 0.5 10^3/ul (0-0.8); ABS Neutrophils 4.1 10^3/ul (1.5-7.7); ABS Nucleated RBC 0 10^3/ul; Eosinophil % 0.7 % (0-6); Hematocrit 40 % (35-47); Hemoglobin 13.6 g/dl (12.0-16.0); Lymphocyte % 23.6 % (25-47); Mean Corpuscular HGB Conc 34 g/dl (31-36); Mean Corpuscular Hemoglobin 31 pg (27-31); Mean Corpuscular Volume 92 fL (80-97); Nucleated Red Blood Cells % 0.1; Platelet Count 342 10^3/ul (150-450); Red Blood Count 4.33 10^6/ul (4.00-5.40); Red Cell Distribution Width 13 % (10.5-15); White Blood Count 6.1 10^3/ul (3.5-10.8)
--- NOTE | 2018-03-29 09:16 | UC ---
- Progress Note Progress Note: CBC, cmp reviewed sed rate 6 no change in management irene 03/29/2018 Discharge - Sign-Out/Discharge Documenting (check all that apply): Post-Discharge Follow Up All imaging exams completed and their final reports reviewed: No Studies - Discharge Plan Condition: Stable Disposition: HOME Patient Education Materials: [place] (ED) Referrals: Sultana Dumont MD [Primary Care Provider] - 2 Days Additional Instructions: 1- Your leg is presenting w/ petechia in your posterior RT lower leg. It can be a vasculitis 2- Please increase fluid intake, rest, elevate your legs. 3- Blood work has been sent to lab, you will be notified of any abnormality. 4- Urine was +positive for trace of blood and Leukoesteraces. Urine was sent for culture. You will be notified of results for further management. 5--Please take Tylenol PO q6-8hrs prn if you develop pain. 6-If bruising or pethechia spreads in all your body and you develop fever please go immediately to the Er for further managmeent. 7- test is negative - Billing Disposition and Condition Condition: STABLE Disposition: Home
== END 2018-03-28 14:54 | disposition home or self-care (01) ==
LOC: UCEAST 11:44
DX: R23.3 Spontaneous ecchymoses (principal); Z88.2 Allergy status to sulfonamides; Z88.3 Allergy status to other anti-infective agents; Z88.0 Allergy status to penicillin; Z91.018 Allergy to other foods; Z91.09 Other allergy status, other than to drugs and biological substances; Z91.041 Radiographic dye allergy status
CPT/HCPCS: 36415; 80053; 81003; 84702; 85025; 85652; 87086; 99211; G0463

== ENCOUNTER 2018-11-02 15:54 | Emergency (ER) | payer MEDICAID, OTHER ==
[2018-11-02 16:02] VITALS: BP 121/81
--- NOTE | 2018-11-02 16:21 | UC ---
Complaint Female HPI - HPI Summary HPI Summary: 28-year-old female with burning on urination starting today, frequency and urgency. She did notice some blood in her urine today. She does have a history of urinary tract infections as well as kidney stones. She is under the care of Dr. Rascon for her urology care. - History Of Current Complaint Chief Complaint: UCGU Stated Complaint: BURNING BLOODY URINATION WITH NAUSEA AND BACK PAIN Time Seen by Provider: 11/02/18 16:04 Hx Obtained From: Patient Hx Last Menstrual Period: 10/25/18 ?: No - patient is attempting to conceive. Onset/Duration: Gradual Onset - Symptoms started today. Timing: Intermittent - Intermittent every time she urinates. Severity Initially: Moderate Severity Currently: Moderate Pain Intensity: 8 Character: Dull Aggravating Factor(s): Urination Alleviating Factor(s): Nothing Associated Signs And Symptoms: Positive: Fever - Patient thinks she had a fever today., Back Pain - Mild low back pain., Nausea - Mild nausea one time today.. Negative: Vaginal Bleeding/Discharge, Vaginal Discharge, Vomiting(# Of Episodes =) - Risk Factors Ectopic Risk Factor: Negative Ovarian Torsion Risk Factor: Negative - Allergies/Home Medications Allergies/Adverse Reactions: Allergies Allergy/AdvReac Type Severity Reaction Status Date / Time Sulfa (Sulfonamide Allergy Intermediate Itching Verified 11/02/18 16:02 Antibiotics) albuterol Allergy Vomiting Verified 11/02/18 16:02 amoxicillin Allergy Hives Verified 11/02/18 16:02 ANTIBACTERIAL SOAPS Allergy Severe Hives Uncoded 03/28/18 12:19 CATS Allergy Severe Congestion Uncoded 03/28/18 12:19 MRI/CT "BLUE DYE" Allergy Severe ELEVATED Uncoded 03/28/18 12:19 HR AND BP, SWEATY, BREATHING PROBLEMS wheat extract Allergy Vomiting Uncoded 03/28/18 12:19 PMH/Surg Hx/FS Hx/Imm Hx Previously Healthy: Yes GI/ History: Kidney Stones, Other - Frequent urinary tract infections although none recently in the past few months. Other History Of: Negative For: Anticoagulant Therapy - Surgical History Surgical History: Yes Surgery Procedure, Year, and Place: WISDOM TEETH,. BREAST IMPLANTS - Family History Known Family History: Positive: None, Diabetes Negative: Cardiac Disease, Hypertension - Social History Alcohol Use: None Substance Use Type: None Smoking Status (MU): Never Smoked Tobacco Have You Smoked in the Last Year: No Household Exposure Type: Cigarettes Review of Systems All Other Systems Reviewed And Are Negative: Yes Constitutional: Positive: Fever - Patient states she thinks she may have had a fever today. Genitourinary: Positive: Dysuria, Hematuria - Patient noted some blood in her urine today., Frequency, Urgency. Negative: Vaginal/Penile Burning, Vaginal/ Penile Itching, Vaginal/Penile Discharge, Vaginal/Penile Pain, Vaginal/Penile Tenderness, Abnormal Bleeding Motor: Positive: Negative Neurovascular: Positive: Negative Musculoskeletal: Positive: Other: - Mild low back pain today. Neurological: Positive: Negative Psychological: Positive: Negative Is Patient Immunocompromised?: No Physical Exam Triage Information Reviewed: Yes Appearance: Well-Appearing, No Pain Distress, Well-Nourished Vital Signs: Initial Vital Signs Temp 99 F 11/02/18 15:56 Pulse 100 11/02/18 15:56 Resp 16 11/02/18 15:56 BP 121/81 11/02/18 15:56 Pulse Ox 97 11/02/18 15:56 Vital Signs Reviewed: Yes Eye Exam: Normal ENT Exam: Normal Neck exam: Normal Respiratory Exam: Normal Cardiovascular Exam: Normal Abdominal Exam: Normal Abdomen Description: Positive: Nontender, No Organomegaly, Soft. Negative: CVA Tenderness (R), CVA Tenderness (L), Distended, Guarding, Splenomegaly Bowel Sounds: Positive: Present Musculoskeletal Exam: Normal Neurological Exam: Normal Psychological Exam: Normal Skin Exam: Normal Complaint Female Dx - Course Course Of Treatment: Patient has been comfortable here. Because of her allergies to penicillin and sulfa I'm going to treat her with cephalexin 500 mg by mouth 3 times a day 10 days with a definite follow up with her urologist next week. She is to go to the emergency room if she develops worsening symptoms, fever, chills, worsening back pain, unable to keep medicine down. She is agreeable to this plan of action. I stressed the importance of the urology follow-up because of her history of kidney stones as well. - Differential Dx/Diagnosis Differential Diagnosis/HQI/PQRI: Ureteral Stone, Urinary Tract Infection Provider Diagnosis: UTI (urinary tract infection) Discharge - Sign-Out/Discharge Documenting (check all that apply): Patient Departure All imaging exams completed and their final reports reviewed: No Studies - Discharge Plan Condition: Good Disposition: HOME Prescriptions: Cephalexin CAP* [Keflex 500 CAP*] 500 mg PO TID 10 Days #30 cap Patient Education Materials: Urinary Tract Infection in Women (DC) Referrals: Sultana Dumont MD [Primary Care Provider] - John Rascon MD [Medical Doctor] - Additional Instructions: Increase fluids. Definite follow up with your urologist on Sunday or Sunday if no improvement in symptoms. Go to the emergency room if you are unable keep the medicine down, or have worsening symptoms. - Billing Disposition and Condition Condition: GOOD Disposition: Home
--- NOTE | 2018-11-04 15:45 | UC ---
- Progress Note Progress Note: 11/04/2018 Urine culture final reports: No growth please call back patient and notify her of final result and to stop antibiotic Thank you Sawthi Salinas PA-C Course/Dx - Diagnoses Provider Diagnoses: UTI (urinary tract infection) Discharge - Sign-Out/Discharge Documenting (check all that apply): Post-Discharge Follow Up All imaging exams completed and their final reports reviewed: No Studies - Discharge Plan Condition: Good Disposition: HOME Prescriptions: Cephalexin CAP* [Keflex 500 CAP*] 500 mg PO TID 10 Days #30 cap Patient Education Materials: Urinary Tract Infection in Women (DC) Referrals: Sultana Dumont MD [Primary Care Provider] - John Rascon MD [Medical Doctor] - Additional Instructions: Increase fluids. Definite follow up with your urologist on Sunday or Sunday if no improvement in symptoms. Go to the emergency room if you are unable keep the medicine down, or have worsening symptoms. - Billing Disposition and Condition Condition: GOOD Disposition: Home
== END 2018-11-02 16:32 | disposition home or self-care (01) ==
LOC: UCEAST 15:54
DX: N39.0 Urinary tract infection, site not specified (principal); R31.9 Hematuria, unspecified; Z88.2 Allergy status to sulfonamides; Z88.3 Allergy status to other anti-infective agents; Z88.8 Allergy status to other drugs, medicaments and biological substances
CPT/HCPCS: 81003; 84702; 87086; 99212; G0463

== ENCOUNTER 2019-02-20 18:56 | Emergency (ER) | payer OTHER ==
[2019-02-20 19:39] VITALS: BP 136/97
--- NOTE | 2019-02-20 19:48 | UC ---
Skin Complaint HPI - HPI Summary HPI Summary: 28-year-old female who thinks that she got a bug bite to the posterior part of her right knee. She denies any IV drug use or injecting any illicit drugs. She denies any fever or chills. - History of Current Complaint Chief Complaint: UCSkin Time Seen by Provider: 02/20/19 19:04 Stated Complaint: BUG BITE Hx Obtained From: Patient Hx Last Menstrual Period: [id number] ?: No Onset/Duration: Gradual Onset, Other - Started 3 or 4 days ago. Skin Exposure Onset/Duration: Days Ago Timing: Constant Onset Severity: Mild Current Severity: Moderate Pain Intensity: 9 Location: Other - Behind right knee. Character: Swelling, Pain, Redness Aggravating Factor(s): Touch Alleviating Factor(s): Nothing Associated Signs & Symptoms: Positive: Tenderness Related History: Insect Bite/Sting - Patient thinks she may have been bitten by a bug but not sure. - Allergy/Home Medications Allergies/Adverse Reactions: Allergies Allergy/AdvReac Type Severity Reaction Status Date / Time Sulfa (Sulfonamide Allergy Intermediate Itching Verified 02/21/19 08:48 Antibiotics) albuterol Allergy Vomiting Verified 02/21/19 08:48 amoxicillin Allergy Hives Verified 02/21/19 08:48 ANTIBACTERIAL SOAPS Allergy Severe Hives Uncoded 02/21/19 08:48 CATS Allergy Severe Congestion Uncoded 02/21/19 08:48 MRI/CT "BLUE DYE" Allergy Severe ELEVATED Uncoded 02/21/19 08:48 HR AND BP, SWEATY, BREATHING PROBLEMS wheat extract Allergy Vomiting Uncoded 02/21/19 08:48 Home Medications: Home Medications Ibuprofen TAB* [Motrin TAB* 600 MG] 600 mg PO Q6H PRN 02/20/19 [History Confirmed 02/20/19] PMH/Surg Hx/FS Hx/Imm Hx Previously Healthy: Yes Respiratory History: Asthma Other History Of: Negative For: Anticoagulant Therapy - Surgical History Surgical History: Yes Surgery Procedure, Year, and Place: WISDOM TEETH,. BREAST IMPLANTS - Family History Known Family History: Positive: None, Diabetes Negative: Cardiac Disease, Hypertension - Social History Alcohol Use: None Substance Use Type: None, Other - Patient denies any injection of any illicit drugs. Smoking Status (MU): Light Every Day Tobacco Smoker Have You Smoked in the Last Year: No Household Exposure Type: Cigarettes Review of Systems All Other Systems Reviewed And Are Negative: Yes Skin: Positive: Other - Erythema, swelling to back of right knee with tenderness on palpation. Motor: Positive: Negative Neurovascular: Positive: Negative Musculoskeletal: Positive: Negative Neurological: Positive: Negative Is Patient Immunocompromised?: No Physical Exam Triage Information Reviewed: Yes Appearance: Well-Appearing, No Pain Distress, Well-Nourished Vital Signs: Initial Vital Signs Temp 99.0 F 02/20/19 19:34 Pulse 80 02/20/19 19:34 Resp 16 02/20/19 19:34 BP 136/97 02/20/19 19:34 Pulse Ox 95 02/20/19 19:34 Vital Signs Reviewed: Yes Musculoskeletal Exam: Normal Musculoskeletal: Positive: Strength Intact, ROM Intact, Other: - Calves non- Tender. The back of the right knee has erythema and swelling. Tender on palpation. There is an area of hardness present however at this time. No abscess formation, the area is not fluctuant. No streaking Neurological: Positive: Alert, Muscle Tone Normal Psychological Exam: Normal Skin: Positive: Other - See above notes. Course/Dx - Course Course Of Treatment: Patient is comfortable here. Although she is allergic to amoxicillin she states she has had cephalexin in the past without any adverse reaction. Start her with cephalexin 500 mg by mouth twice a day and to apply warm moist compresses to the area 4-6 times a day for 20 minutes each time. She is to follow-up with her primary care provider on Sunday for recheck. She did tell me she had no primary care provider therefore I'm sending her to the [facility] however according to the chart she does have Dr. Dumont as her primary care. - Diagnoses Provider Diagnosis: Cellulitis Discharge - Sign-Out/Discharge Documenting (check all that apply): Patient Departure All imaging exams completed and their final reports reviewed: No Studies - Discharge Plan Condition: Fair Disposition: HOME Prescriptions: Cephalexin CAP* [Keflex 500 CAP*] 500 mg PO BID 10 Days #20 cap Patient Education Materials: Cellulitis (DC) Forms: *Work Release Referrals: [facility] [Outside] Sultana Dumont MD [Primary Care Provider] - Additional Instructions: Warm moist compresses to your leg 4-6 times a day for 20 minutes each time. Tylenol for pain. Follow up at the [facility] on Sunday for a recheck. - Billing Disposition and Condition Condition: FAIR Disposition: Home - Attestation Statements Provider Attestation: Per institutional requirements, I have reviewed the chart, however, I was not consulted specifically or made aware of this patient by the midlevel provider. I did not personally evaluate, interact with , or disposition this patient.
== END 2019-02-20 19:58 | disposition home or self-care (01) ==
LOC: UCEAST 18:56
DX: L03.115 Cellulitis of right lower limb (principal); J45.909 Unspecified asthma, uncomplicated; F17.210 Nicotine dependence, cigarettes, uncomplicated; Z88.2 Allergy status to sulfonamides
CPT/HCPCS: 99212; G0463

== ENCOUNTER → 2019-02-21 08:34 | Emergency (ER) | payer OTHER ==
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
[2019-02-21 09:21] LABS: ABS Eosinophils 0.1 10^3/ul (0-0.6); ABS Lymphocytes 1.2 10^3/ul (1.0-4.8); ABS Monocytes 0.6 10^3/ul (0-0.8); ABS Neutrophils 6.5 10^3/ul (1.5-7.7); Eosinophil % 1.1 %; Hematocrit 40 % (35-47); Hemoglobin 13.6 g/dL (12.0-16.0); Lymphocyte % 13.9 %; Mean Corpuscular HGB Conc 34 g/dL (31-36); Mean Corpuscular Hemoglobin 32 pg (27-31); Mean Corpuscular Volume 92 fL (80-97); Mean Platelet Volume 7.2 fL (7.4-10.4); Platelet Count 269 10^3/uL (150-450); Red Blood Count 4.29 10^6 /uL (3.70-4.87); Red Cell Distribution Width 13 % (10-15); White Blood Count 8.5 10^3/uL (3.5-10.8)
[2019-02-21 09:45] LABS: Albumin 4.4 g/dL (3.2-5.2); Albumin/Globulin Ratio 1.6 (1-3); Calcium 9.2 mg/dL (8.6-10.3); EGFR African American 132.7 (>60); EGFR Non-African American 109.7 (>60); Globulin 2.8 g/dL (2-4); Potassium 4.6 mmol/L (3.5-5.0); Total Bilirubin 0.5 mg/dL (0.2-1.0); Total Protein 7.2 g/dL (6.4-8.9)
[2019-02-21 11:20] VITALS: BP 123/87
== END | disposition home or self-care (01) ==
LOC: ED 08:34
DX: L03.115 Cellulitis of right lower limb (principal); Z88.2 Allergy status to sulfonamides; Z88.8 Allergy status to other drugs, medicaments and biological substances; Z88.1 Allergy status to other antibiotic agents; Z91.041 Radiographic dye allergy status; Z87.891 Personal history of nicotine dependence
CPT/HCPCS: 36415; 80053; 83605; 85025; 99283

== ENCOUNTER 2019-05-03 10:33 | Emergency (ER) | payer SELFPAY ==
[2019-05-03 10:48] VITALS: BP 125/82
--- NOTE | 2019-05-03 11:05 | UC ---
Complaint Female HPI - HPI Summary HPI Summary: Patient is a 28-year-old female, history of kidney stones, VUR, here with urinary tract infection symptoms. Patient's had 3 days of dysuria, frequency, urgency. Patient has no fever, chills, nausea, vomiting, diarrhea, constipation , abdominal pain. Patient does have bilateral lower back pain that started this morning. Patient states this feels that her typical UTI and not like a kidney stone. Patient's last UTI was in September. Patient has been evaluated by a urologist to determine the cause of her frequent UTIs and was diagnosed with VUR. Patient has no vaginal discharge. Patient is on her period. Medications reviewed - History Of Current Complaint Chief Complaint: UCGU Stated Complaint: URINARY Time Seen by Provider: 05/03/19 10:50 Hx Obtained From: Patient Hx Last Menstrual Period: 04/25/19 Pain Intensity: 10 - Allergies/Home Medications Allergies/Adverse Reactions: Allergies Allergy/AdvReac Type Severity Reaction Status Date / Time Sulfa (Sulfonamide Allergy Intermediate Itching Verified 05/03/19 10:46 Antibiotics) albuterol Allergy Vomiting Verified 05/03/19 10:46 amoxicillin Allergy Hives Verified 05/03/19 10:46 ANTIBACTERIAL SOAPS Allergy Severe Hives Uncoded 05/03/19 10:46 CATS Allergy Severe Congestion Uncoded 05/03/19 10:46 MRI/CT "BLUE DYE" Allergy Severe ELEVATED Uncoded 05/03/19 10:46 HR AND BP, SWEATY, BREATHING PROBLEMS wheat extract Allergy Vomiting Uncoded 05/03/19 10:46 PMH/Surg Hx/FS Hx/Imm Hx Previously Healthy: Yes Other History Of: Negative For: Anticoagulant Therapy - Surgical History Surgical History: Yes Surgery Procedure, Year, and Place: WISDOM TEETH,. BREAST IMPLANTS - Family History Known Family History: Positive: None, Diabetes, Non-Contributory Negative: Cardiac Disease, Hypertension - Social History Alcohol Use: None Substance Use Type: None Smoking Status (MU): Former Smoker Have You Smoked in the Last Year: No Household Exposure Type: Cigarettes Review of Systems All Other Systems Reviewed And Are Negative: Yes Constitutional: Negative: Fever, Chills Cardiovascular: Negative: Palpitations, Chest Pain Gastrointestinal: Negative: Abdominal Pain, Vomiting, Diarrhea, Nausea Genitourinary: Positive: Dysuria, Frequency, Urgency Physical Exam - Summary Physical Exam Summary: Vital Signs Reviewed: Yes A+Ox3, no distress Eyes: Conjunctiva Clear, PERRL. EOM intact and full ENT: Hearing grossly normal TM x 2 clear, moist, uvula midline, no exudate, no erythema Neck: Positive: Supple Respiratory: Positive: No respiratory distress, No accessory muscle use + CTA throughout no w/r Cardiovascular: RRR nl s1, s2 no m/r CBT <2 sec abd soft + BS nt/nd no guarding, no distension. No CVA TTP Musculoskeletal Exam: WALTERS x 4 without difficulty Strength Intact, ROM Intact Neurological: Positive: Alert, + sensation throughout Psychological: Positive: Normal Response To Family Skin: no rash, no ecchymosis Vital Signs: Initial Vital Signs Temp 97.8 F 05/03/19 10:43 Pulse 87 05/03/19 10:43 Resp 17 05/03/19 10:43 BP 125/82 05/03/19 10:43 Pulse Ox 100 05/03/19 10:43 Complaint Female Dx - Course Course Of Treatment: Patient is here with symptoms consistent with a UTI. Patient does not clinically have pyelonephritis. Patient does not feel like this represents a kidney stone given her symptomology. Patient was started on Keflex. Patient's urine was sent for culture. - Differential Dx/Diagnosis Provider Diagnosis: Cystitis Discharge ED - Sign-Out/Discharge Documenting (check all that apply): Patient Departure All imaging exams completed and their final reports reviewed: No Studies - Discharge Plan Condition: Stable Disposition: HOME Prescriptions: Cephalexin CAP* [Keflex CAP*] 500 mg PO BID 5 Days #10 cap Patient Education Materials: Urinary Tract Infection in Women (ED) Referrals: No Primary Care Phys,NOPCP [Primary Care Provider] - Additional Instructions: Please take antibiotics as prescribed Please return if you have fever, vomiting, worsening pain on your side or abdomen - Billing Disposition and Condition Condition: STABLE Disposition: Home
--- NOTE | 2019-05-07 10:25 | UC ---
- Progress Note Progress Note: + staph saprophyticus on cephalexin no change pazj 05/07/19 Course/Dx - Diagnoses Provider Diagnoses: Cystitis Discharge ED - Sign-Out/Discharge Documenting (check all that apply): Post-Discharge Follow Up All imaging exams completed and their final reports reviewed: No Studies - Discharge Plan Condition: Stable Disposition: HOME Prescriptions: Cephalexin CAP* [Keflex CAP*] 500 mg PO BID 5 Days #10 cap Patient Education Materials: Urinary Tract Infection in Women (ED) Referrals: No Primary Care Phys,NOPCP [Primary Care Provider] - Additional Instructions: Please take antibiotics as prescribed Please return if you have fever, vomiting, worsening pain on your side or abdomen - Billing Disposition and Condition Condition: STABLE Disposition: Home
== END 2019-05-03 11:40 | disposition home or self-care (01) ==
LOC: UCEAST 10:33
DX: N30.00 Acute cystitis without hematuria (principal); M54.5 Low back pain; Z87.440 Personal history of urinary (tract) infections; Z87.442 Personal history of urinary calculi; Z91.041 Radiographic dye allergy status; Z88.0 Allergy status to penicillin; Z88.2 Allergy status to sulfonamides; Z88.8 Allergy status to other drugs, medicaments and biological substances; Z91.048 Other nonmedicinal substance allergy status; Z87.891 Personal history of nicotine dependence
CPT/HCPCS: 81003; 84702; 87077; 87086; 87088; 99212; G0463

== ENCOUNTER 2019-10-28 16:31 | Emergency (ER) | payer OTHER ==
--- NOTE | 2019-10-28 17:08 | UC ---
Respiratory Complaint HPI - HPI Summary HPI Summary: 29 yo female presents with sore throat. She tells me that over the last month has had a dry cough - attributes this to smoking and weather change as she gets "bronchitis" like this every year. Over the last 2 days has felt feverish, headache, sore throat, and tired. Notes that she is working a lot more recently ([employer]). She has been taking mucinex and robitussin OTC with little relief. She is eating, drinking, and tolerating po well. Has not taken her temperature. Denies sinus symptoms, SOB, chest pain, rash, abdominal pain, n/v. No known exposure to positive COVID. - History of Current Complaint Stated Complaint: COUGH Time Seen by Provider: 10/28/19 17:07 Hx Obtained From: Patient Onset/Duration: Gradual Onset Severity Initially: Mild Severity Currently: Moderate Pain Intensity: 4 Pain Scale Used: 0-10 Numeric - Allergies/Home Medications Allergies/Adverse Reactions: Allergies Allergy/AdvReac Type Severity Reaction Status Date / Time Sulfa (Sulfonamide Allergy Intermediate Itching Verified 10/28/19 17:17 Antibiotics) albuterol Allergy Vomiting Verified 10/28/19 17:17 amoxicillin Allergy Hives Verified 10/28/19 17:17 ANTIBACTERIAL SOAPS Allergy Severe Hives Uncoded 05/03/19 10:46 CATS Allergy Severe Congestion Uncoded 05/03/19 10:46 MRI/CT "BLUE DYE" Allergy Severe ELEVATED Uncoded 05/03/19 10:46 HR AND BP, SWEATY, BREATHING PROBLEMS wheat extract Allergy Vomiting Uncoded 05/03/19 10:46 Home Medications: Home Medications Azithromycin TAB* [Zithromax TAB (Z-CHERRI) 250 mg #6 tabs] 2 tab PO .TODAY, THEN 1 DAILY #1 cherri 10/28/19 [Rx] Ibuprofen TAB* [Motrin TAB* 600 MG] 600 mg PO Q6HR 10/28/19 [History Confirmed 10/28/19] PMH/Surg Hx/FS Hx/Imm Hx - Additional Past Medical History Additional PMH: Kidney stones Other History Of: Negative For: Anticoagulant Therapy - Surgical History Surgical History: Yes Surgery Procedure, Year, and Place: WISDOM TEETH,. BREAST IMPLANTS - Family History Known Family History: Positive: Diabetes, Non-Contributory Negative: Cardiac Disease, Hypertension - Social History Lives: With Family Alcohol Use: None Substance Use Type: None Smoking Status (MU): Former Smoker Have You Smoked in the Last Year: No Household Exposure Type: Cigarettes Review of Systems All Other Systems Reviewed And Are Negative: No Constitutional: Positive: Fever - subjective, Fatigue Skin: Positive: Negative Eyes: Positive: Negative ENT: Positive: Sore Throat Respiratory: Positive: Cough Cardiovascular: Positive: Negative Gastrointestinal: Positive: Negative Genitourinary: Positive: Negative Neurological/Mental Status: Positive: Headache Psychological: Positive: Negative Physical Exam - Summary Physical Exam Summary: GENERAL: NAD. WDWN. No pain distress. SKIN: No rashes, sores, lesions, or open wounds. HEENT: Head: AT/NC Eyes: Conjunctiva clear without inflammation or discharge. Ears: Hearing grossly normal. TMs intact, no bulging, erythema, or edema. Nose: Nasal mucosa pink and moist. NTTP maxillary and frontal sinus. Throat: Posterior oropharynx mild erythema and 3+ tonsillar enlargement. No exudates. Uvula midline. No hoarse voice or muffled voice. NECK: Supple. Mildly ttp tonsillar LAD b/l. CHEST: CTAB. No r/r/w. No accessory muscle use. Breathing comfortably and in no distress. CV: RRR. Pulses intact. Cap refill <2seconds NEURO: Alert. PSYCH: Age appropriate behavior. Triage Information Reviewed: Yes Vital Signs: Vital Signs: Temp Pulse Resp BP Pulse Ox 99.7 F 80 16 152/81 99 10/28/19 17:06 10/28/19 17:06 10/28/19 17:06 10/28/19 17:06 10/28/19 17:06 Laboratory Tests 10/28/19 10/28/19 17:50 17:52 Influenza A (Rapid) Negative Influenza B (Rapid) Negative Group A Strep Rapid Negative Vital Signs Reviewed: Yes Respiratory Course/Dx - Course Course Of Treatment: Exam performed utilizing CDC recommended PPE. POC strep and flu negative. Discussed testing for COVID today. I have a low suspicion at this time given her dry cough for >1month, though she does have new onset symptoms in the last 2 days and has continued working. A sample was obtained, but pt declined testing for COVID today. Will treat with tonsillitis/pharyngitis with zpak and have her be rechecked if symptoms do not improve. - Differential Dx/Diagnosis Provider Diagnosis: Tonsillitis Discharge ED - Sign-Out/Discharge Documenting (check all that apply): Patient Departure All imaging exams completed and their final reports reviewed: No Studies - Discharge Plan Condition: Stable Disposition: HOME Prescriptions: Azithromycin TAB* [Zithromax TAB (Z-CHERRI) 250 mg #6 tabs] 2 tab PO .TODAY, THEN 1 DAILY #1 cherri Patient Education Materials: Tonsillitis (ED) Forms: *Work Release Referrals: Sultana Dumont MD [Primary Care Provider] - Additional Instructions: Your strep and flu test were negative today, however you exam and history appear consistent with tonsillitis/strep-like illness...therefore you are being treated for this today. - Billing Disposition and Condition Condition: STABLE Disposition: Home
[2019-10-28 17:54] VITALS: BP 152/81
[2019-10-28 18:03] LABS: Influenza A Molecular Negative (Negative); Influenza B Molecular Negative (Negative)
== END 2019-10-28 18:10 | disposition home or self-care (01) ==
LOC: UCEAST 16:31
DX: J03.90 Acute tonsillitis, unspecified (principal); Z91.041 Radiographic dye allergy status; Z88.0 Allergy status to penicillin; Z88.2 Allergy status to sulfonamides; Z88.8 Allergy status to other drugs, medicaments and biological substances; Z91.048 Other nonmedicinal substance allergy status; Z87.891 Personal history of nicotine dependence
CPT/HCPCS: 87651; 99211; G0463